=== PATIENT | female | born 2000 | race Caucasian/White ===

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

== ENCOUNTER → 2021-06-04 | Outpatient (CLI) | payer BC | LOC: LAB 14:57 | DX: R05 Cough (principal) ==

== ENCOUNTER → 2021-06-07 | Outpatient (CLI) | payer BC | LOC: LAB 10:37 | DX: R05 Cough (principal); Z20.822 Contact with and (suspected) exposure to COVID-19 ==

== ENCOUNTER → 2021-11-17 | Outpatient (CLI) | payer BC ==
[2021-11-17 10:47] LABS: BASO # 0.04 K/mm3 (0.02-0.10); EOS # 0.15 K/mm3 (0.04-0.40); EOS % 2.8 % (0.1-4.0); HEMATOCRIT 38.4 % (35.0-45.0); HEMOGLOBIN 12.8 g/dL (12.0-15.0); LYMPH# 1.83 K/mm3 (1.20-3.40); MEAN CELL VOLUME 91 fl (78-95); MEAN CORPUSCULAR HEMOGLOBIN 30 pg (26-32); MEAN CORPUSCULAR HGB CONC 33 g/dL (33-37); MEAN PLATELET VOLUME 10.5 fl (7.4-10.4); MONO # 0.37 K/mm3 (0.10-0.60); NEU # 3.03 K/mm3 (1.40-6.50); PLATELET COUNT 233 K/mm3 (130-400); RED BLOOD COUNT 4.24 M/mm3 (4.10-5.30); RED CELL DISTRIBUTION WIDTH 12.3 % (11.5-14.5); WHITE BLOOD COUNT 5.4 K/mm3 (4.8-10.8)
[2021-11-17 10:49] LABS: ALBUMIN 4.2 g/dL (3.5-5.0)
[2021-11-17 10:50] LABS: POTASSIUM 4.4 mmol/L (3.5-5.1)
[2021-11-17 10:51] LABS: CALCIUM 9.3 mg/dL (8.3-10.5)
[2021-11-17 10:52] LABS: TOTAL PROTEIN 6.9 g/dL (6.4-8.3)
[2021-11-17 10:54] LABS: TOTAL BILIRUBIN 0.3 mg/dL (0.2-1.2)
== END ==
LOC: LAB 09:54
PROVIDERS: Family Medicine
DX: J02.9 Acute pharyngitis, unspecified (principal)
CPT/HCPCS: Q9967

== ENCOUNTER → 2024-11-08 | Outpatient (CLI) | payer BC ==
[2024-11-08 14:54] LABS: BASO # 0.03 K/mm3 (0.02-0.10); EOS # 0.13 K/mm3 (0.04-0.40); EOS % 1.4 % (1.0-5.0); HEMOGLOBIN 13.8 g/dL (12.5-16.0); MEAN CELL VOLUME 88 fl (78-100); MEAN CORPUSCULAR HEMOGLOBIN 29 pg (27-31); MEAN CORPUSCULAR HGB CONC 33 g/dL (33-37); MEAN PLATELET VOLUME 10.4 fl (7.4-10.4); MONO # 0.53 K/mm3 (0.20-0.80); NEU # 5.56 K/mm3 (1.40-6.50); PLATELET COUNT 270 K/mm3 (130-400); RED BLOOD COUNT 4.79 M/mm3 (4.10-5.30); RED CELL DISTRIBUTION WIDTH 12.1 % (11.5-14.5)
[2024-11-08 15:00] LABS: ALBUMIN 4.4 g/dL (3.5-5.0)
[2024-11-08 15:03] LABS: TOTAL PROTEIN 7.2 g/dL (6.4-8.3)
[2024-11-08 15:05] LABS: TOTAL BILIRUBIN 0.3 mg/dL (0.2-1.2)
[2024-11-08 22:52] LABS: FOLLICLE STIMULATING HORMONE 10.5 mIU/mL (()); LUTENIZING HORMONE 56.7 mIU/mL (())
== END ==
LOC: LAB 14:33
PROVIDERS: Nurse Practitioner
DX: E28.2 Polycystic ovarian syndrome (principal); R63.8 Other symptoms and signs concerning food and fluid intake